=== PATIENT | male | born 1980 | race Caucasian/White ===

== ENCOUNTER 2020-06-16 12:25 | Emergency (ER) | payer OTHER, SELFPAY ==
[2020-06-16] VITALS (10 sets, daily range): BP systolic 104–163; BP diastolic 62–109; PULSE 83–101; RESP 14–26; TEMP 36.8; O2SAT 94–100; BMI 24.0
--- NOTE | 2020-06-16 12:39 | ECG_ITS ---
Test Reason : PSYCHOTIC EPISODE Blood Pressure : / mmHG Vent. Rate : 101 BPM Atrial Rate : 101 BPM P-R Int : 142 ms QRS Dur : 092 ms QT Int : 366 ms P-R-T Axes : 074 070 056 degrees QTc Int : 474 ms Sinus tachycardia Otherwise normal ECG No previous ECGs available Referred By: Magdalena Cortez Electronically Signed By:LULU MCKNIGHT MD
--- NOTE | 2020-06-16 12:39 | CT_ITS ---
EXAMINATION: CT HEAD WITHOUT CONTRAST CLINICAL INFORMATION: Dilution no COMPARISON: None TECHNIQUE: Contiguous axial imaging was performed from the skull base to vertex without intravenous administration of contrast. This CT examination was performed using dose optimization techniques as appropriate, variously including the following: *Automated exposure control *Adjustment of mA and/or kV according to patient size (this includes techniques or standardized protocols for targeted exams where dose is matched to indication/reason for exam; i.e. extremities or head) *Use of iterative reconstruction technique DLP: 764 mGy-cm FINDINGS: There is no evidence of acute intracranial hemorrhage or territorial infarction. No abnormal mass effect or midline shift is seen. Malcolm to white matter differentiation is well preserved. No extra-axial fluid collections are identified. The ventricles are normal in size. There is no abnormal attenuation within the brain parenchyma. The osseous structures are normal. The mastoid air cells and visualized portions of the paranasal sinuses are well aerated. There is a 1.2 x 0.6 cm partially calcified scalp lesion at the vertex consistent with a trichilemmal/epidermal cyst. CT/CT head/brain wo con IMPRESSION: No acute intracranial pathology. Probable trichilemmal/epidermal cyst
--- NOTE | 2020-06-16 12:39 | XR_ITS ---
EXAMINATION: XR CHEST CLINICAL INFORMATION: AMS COMPARISON: None TECHNIQUE: AP portable view of the chest was obtained. FINDINGS: No significant abnormality is noted involving the heart, lungs, mediastinum, bony thorax or soft tissues. XR/XR chest 1V IMPRESSION: No acute disease.
--- NOTE | 2020-06-16 12:49 | ED_ITS ---
HPI - Psych General Chief Complaint: Altered Mental Status Stated Complaint: ?covid symptoms Time Seen by Provider: 06/16/20 12:38 Source: patient and family Mode of arrival: ambulatory Limitations: other (uncooperative) History of Present Illness complaint: other (delusions, paranoia) Onset (ago): day(s) (7) Duration: constant History of same: No Relieving factors: none Exacerbating factors: none Context: other (not sleeping x 1 week, takes adderrall) Associated psychiatric symptoms: racing thoughts and delusions Associated symptoms: denies other symptoms Treatments prior to arrival: none Related Data Home Medications Medication Instructions Recorded Confirmed Adderall 06/16/20 Allergies Allergy/AdvReac Type Severity Reaction Status Date / Time No Known Allergies Allergy Verified 06/16/20 12:38 Review of Systems Review of Systems: ROS unable to be obtained due to being uncooperative [facility] Past Medical History Attestation statement: The following information was validated with the patient. Medical History No known health problems Social History Social History (Updated 06/16/20 @ 13:48 by Magdalena Cortez DO) Alcohol intake: unknown Smoking Status: Never smoker Substance Use Type: Marijuana Advance Directives: No Advance Directives Information Provided: No Physical Exam Vital Signs: Vital Signs: Last Vital Signs Temp 98.3 F 06/16/20 15:17 Pulse 94 06/16/20 15:17 Resp 16 06/16/20 15:17 BP 144/91 H 06/16/20 15:17 Pulse Ox 99 06/16/20 15:17 Body Mass Index 24.0 Appearance: Alert. Oriented X3. Agitated limited history uncooperative at times Eyes: Pupils equal, round and reactive to light. dilated to 5mm ENT: Pharynx normal. Neck: Normal inspection. Neck supple. CVS: Normal heart rate and rhythm. Pulses normal. Respiratory: No respiratory distress. Breath sounds normal. Abdomen: Soft and non-tender. Skin: Skin warm and dry. Normal skin color. Normal skin turgor. Extremities: No lower extremity edema. No calf ttp Neuro: Oriented X 3. No motor deficit. No sensory deficit. Course Course Course Narrative: patient initially came in to ED with coaxing, I placed him on section 12 he is paranoid and delusional - agitated, repeated requests to bring his daughter with him to keep her in my line of sight but couldn't say why, the child was tearful and crying, at this time after arrival in bed he became very agitated and threatening - IM haldol and ativan ordered suspect initial error in lactic acid will repeat repeat lactic acid 3.2 likely due to agittion has no fever and no WBC count at this time I do not suspect infection or severe sepsis 225pm recheck after medications, patient is asleep and resting comfortably post IM medications IVF ordered, signed out pending full workup MDM - Psych MDM Narrative Medical decision making narrative: 39 yo male agitated and paranoid not sleeping for 1 week on adderrall - here very aggressive at this time will need labs, CXR, CT head to r/o medical issues but at this time the patient seems that the patient has a psychosis due to lack of sleep and possible adderrall use - dispo per results and findings. Lab Data Result diagrams: 06/16/20 13:16 06/16/20 13:16 Labs: Lab Results 06/16/20 06/16/20 06/16/20 Range/Units 13:16 13:16 13:16 WBC 6.7 (4.8-10.8) X10*3/uL RBC 4.57 L (4.60-5.80) X10*6/uL Hgb 13.5 L (14.0-18.0) g/dl Hct 40.6 L (42-52) % MCV 88.8 (80-98) fL MCH 29.5 (27.0-33.0) pg MCHC 33.3 (31.0-36.0) g/dl RDW 12.1 (11.0-16.0) % Plt Count 310 (160-400) X10*3/uL MPV 9.9 (9.4-12.4) fL Immature Gran % (Auto) 0.1 (0.0-0.4) % Neut % (Auto) 70.8 (45-73) % Lymph % (Auto) 21.0 (20-40) % [place] % (Auto) 7.9 (2-11) % Eos % (Auto) 0.1 (0-4) % Baso % (Auto) 0.1 (0-2) % Lymph # (Auto) 1.4 (1.2-4.9) X10*3/uL [place] # (Auto) 0.5 (0.1-1.2) X10*3/uL Eos # (Auto) 0.0 (0.0-0.4) X10*3/uL Baso # (Auto) 0.0 (0.0-0.2) X10*3/uL Abs Immat Gran (auto) 0.01 (0.00-0.03) X10*3/uL Absolute Neuts (auto) 4.7 (2.0-8.3) X10*3/uL Absolute Nucleated RBC 0.000 (0.0-0.012) X10*3/uL Nucleated RBC % (auto) 0.0 (0.0-0.2) /100WBC PT (10.8-13.0) SEC INR (0.9-1.1) APTT (24.1-38.0) SEC VBG pH (7.32-7.43) VBG pCO2 mmhg VBG pO2 mmhg VBG HCO3 mmol/L VBG O2 Saturation % VBG Base Excess mmol/L Sodium 137 (135-145) mmol/L Potassium 3.6 (3.3-5.1) mmol/l Chloride 100 (96-108) mmol/L Carbon Dioxide 18 L (22-29) mmol/L Anion Gap 23 H (12-20) BUN 13 (9-16) mg/dL Creatinine 1.03 (0.5-1.4) mg/dL Estim Creat Clear Calc 117.3 Estimated GFR > 60 Random Glucose 131 H (60-115) mg/dL Lactic Acid (0.5-2.0) mmol/L Calcium 9.7 9.9 (8.4-10.2) mg/dL Magnesium 2.2 (1.6-2.6) mg/dL Ferritin 160 (20-250) ng/mL Total Bilirubin 0.8 (0.0-1.0) mg/dL Direct Bilirubin 0.3 (0.0-0.5) mg/dL AST 18 (5-37) U/L ALT 23 (0-40) U/L Alkaline Phosphatase 84 (39-117) U/L Ammonia (13-55) umol/L Lactate Dehydrogenase 200 (118-273) U/L Total Creatine Kinase 306 H (38-174) U/L Total Protein 7.9 (6.5-8.0) g/dL Albumin 5.1 H (3.5-5.0) g/dL Urine Color Urine Appearance Urine pH (5.0-8.0) Ur Specific [place] (1.005-1.025) Urine Protein (NEG-TRACE) MG/DL Urine Glucose (UA) (NEG) MG/DL Urine Ketones (NEG) MG/DL Urine Blood (NEG) Urine Nitrite (NEG) Ur Leukocyte Esterase (NEG) Urine Opiates Screen (Not Detect) Ur Barbiturates Screen (Not Detect) Ur Phencyclidine Scrn (Not Detect) Ur Amphetamines Screen (Not Detect) U Benzodiazepines Scrn (Not Detect) Urine Cocaine Screen (Not Detect) U Marijuana (THC) Screen (Not Detect) Ethyl Alcohol mg/dL 06/16/20 06/16/20 06/16/20 Range/Units 13:16 13:17 13:17 WBC (4.8-10.8) X10*3/uL RBC (4.60-5.80) X10*6/uL Hgb (14.0-18.0) g/dl Hct (42-52) % MCV (80-98) fL MCH (27.0-33.0) pg MCHC (31.0-36.0) g/dl RDW (11.0-16.0) % Plt Count (160-400) X10*3/uL MPV (9.4-12.4) fL Immature Gran % (Auto) (0.0-0.4) % Neut % (Auto) (45-73) % Lymph % (Auto) (20-40) % [place] % (Auto) (2-11) % Eos % (Auto) (0-4) % Baso % (Auto) (0-2) % Lymph # (Auto) (1.2-4.9) X10*3/uL [place] # (Auto) (0.1-1.2) X10*3/uL Eos # (Auto) (0.0-0.4) X10*3/uL Baso # (Auto) (0.0-0.2) X10*3/uL Abs Immat Gran (auto) (0.00-0.03) X10*3/uL Absolute Neuts (auto) (2.0-8.3) X10*3/uL Absolute Nucleated RBC (0.0-0.012) X10*3/uL Nucleated RBC % (auto) (0.0-0.2) /100WBC PT 12.4 (10.8-13.0) SEC INR 1.0 (0.9-1.1) APTT 29.2 (24.1-38.0) SEC VBG pH (7.32-7.43) VBG pCO2 mmhg VBG pO2 mmhg VBG HCO3 mmol/L VBG O2 Saturation % VBG Base Excess mmol/L Sodium (135-145) mmol/L Potassium (3.3-5.1) mmol/l Chloride (96-108) mmol/L Carbon Dioxide (22-29) mmol/L Anion Gap (12-20) BUN (9-16) mg/dL Creatinine (0.5-1.4) mg/dL Estim Creat Clear Calc Estimated GFR Random Glucose (60-115) mg/dL Lactic Acid 9.7 H* (0.5-2.0) mmol/L Calcium (8.4-10.2) mg/dL Magnesium (1.6-2.6) mg/dL Ferritin (20-250) ng/mL Total Bilirubin (0.0-1.0) mg/dL Direct Bilirubin (0.0-0.5) mg/dL AST (5-37) U/L ALT (0-40) U/L Alkaline Phosphatase (39-117) U/L Ammonia 37 (13-55) umol/L Lactate Dehydrogenase (118-273) U/L Total Creatine Kinase (38-174) U/L Total Protein (6.5-8.0) g/dL Albumin (3.5-5.0) g/dL Urine Color Urine Appearance Urine pH (5.0-8.0) Ur Specific [place] (1.005-1.025) Urine Protein (NEG-TRACE) MG/DL Urine Glucose (UA) (NEG) MG/DL Urine Ketones (NEG) MG/DL Urine Blood (NEG) Urine Nitrite (NEG) Ur Leukocyte Esterase (NEG) Urine Opiates Screen (Not Detect) Ur Barbiturates Screen (Not Detect) Ur Phencyclidine Scrn (Not Detect) Ur Amphetamines Screen (Not Detect) U Benzodiazepines Scrn (Not Detect) Urine Cocaine Screen (Not Detect) U Marijuana (THC) Screen (Not Detect) Ethyl Alcohol mg/dL 06/16/20 06/16/20 06/16/20 Range/Units 13:17 13:22 13:50 WBC (4.8-10.8) X10*3/uL RBC (4.60-5.80) X10*6/uL Hgb (14.0-18.0) g/dl Hct (42-52) % MCV (80-98) fL MCH (27.0-33.0) pg MCHC (31.0-36.0) g/dl RDW (11.0-16.0) % Plt Count (160-400) X10*3/uL MPV (9.4-12.4) fL Immature Gran % (Auto) (0.0-0.4) % Neut % (Auto) (45-73) % Lymph % (Auto) (20-40) % [place] % (Auto) (2-11) % Eos % (Auto) (0-4) % Baso % (Auto) (0-2) % Lymph # (Auto) (1.2-4.9) X10*3/uL [place] # (Auto) (0.1-1.2) X10*3/uL Eos # (Auto) (0.0-0.4) X10*3/uL Baso # (Auto) (0.0-0.2) X10*3/uL Abs Immat Gran (auto) (0.00-0.03) X10*3/uL Absolute Neuts (auto) (2.0-8.3) X10*3/uL Absolute Nucleated RBC (0.0-0.012) X10*3/uL Nucleated RBC % (auto) (0.0-0.2) /100WBC PT (10.8-13.0) SEC INR (0.9-1.1) APTT (24.1-38.0) SEC VBG pH (7.32-7.43) VBG pCO2 mmhg VBG pO2 mmhg VBG HCO3 mmol/L VBG O2 Saturation % VBG Base Excess mmol/L Sodium (135-145) mmol/L Potassium (3.3-5.1) mmol/l Chloride (96-108) mmol/L Carbon Dioxide (22-29) mmol/L Anion Gap (12-20) BUN (9-16) mg/dL Creatinine (0.5-1.4) mg/dL Estim Creat Clear Calc Estimated GFR Random Glucose (60-115) mg/dL Lactic Acid (0.5-2.0) mmol/L Calcium (8.4-10.2) mg/dL Magnesium (1.6-2.6) mg/dL Ferritin (20-250) ng/mL Total Bilirubin (0.0-1.0) mg/dL Direct Bilirubin (0.0-0.5) mg/dL AST (5-37) U/L ALT (0-40) U/L Alkaline Phosphatase (39-117) U/L Ammonia (13-55) umol/L Lactate Dehydrogenase (118-273) U/L Total Creatine Kinase (38-174) U/L Total Protein (6.5-8.0) g/dL Albumin (3.5-5.0) g/dL Urine Color YELLOW Urine Appearance CLEAR Urine pH 6.0 (5.0-8.0) Ur Specific [place] 1.010 (1.005-1.025) Urine Protein NEG (NEG-TRACE) MG/DL Urine Glucose (UA) NEG (NEG) MG/DL Urine Ketones NEG (NEG) MG/DL Urine Blood NEG (NEG) Urine Nitrite NEG (NEG) Ur Leukocyte Esterase NEG (NEG) Urine Opiates Screen Not Detected (Not Detect) Ur Barbiturates Screen Not Detected (Not Detect) Ur Phencyclidine Scrn Not Detected (Not Detect) Ur Amphetamines Screen POSITIVE H (Not Detect) U Benzodiazepines Scrn Not Detected (Not Detect) Urine Cocaine Screen Not Detected (Not Detect) U Marijuana (THC) Screen Not Detected (Not Detect) Ethyl Alcohol < 10 mg/dL 06/16/20 06/16/20 Range/Units 13:50 14:11 WBC (4.8-10.8) X10*3/uL RBC (4.60-5.80) X10*6/uL Hgb (14.0-18.0) g/dl Hct (42-52) % MCV (80-98) fL MCH (27.0-33.0) pg MCHC (31.0-36.0) g/dl RDW (11.0-16.0) % Plt Count (160-400) X10*3/uL MPV (9.4-12.4) fL Immature Gran % (Auto) (0.0-0.4) % Neut % (Auto) (45-73) % Lymph % (Auto) (20-40) % [place] % (Auto) (2-11) % Eos % (Auto) (0-4) % Baso % (Auto) (0-2) % Lymph # (Auto) (1.2-4.9) X10*3/uL [place] # (Auto) (0.1-1.2) X10*3/uL Eos # (Auto) (0.0-0.4) X10*3/uL Baso # (Auto) (0.0-0.2) X10*3/uL Abs Immat Gran (auto) (0.00-0.03) X10*3/uL Absolute Neuts (auto) (2.0-8.3) X10*3/uL Absolute Nucleated RBC (0.0-0.012) X10*3/uL Nucleated RBC % (auto) (0.0-0.2) /100WBC PT (10.8-13.0) SEC INR (0.9-1.1) APTT (24.1-38.0) SEC VBG pH 7.34 (7.32-7.43) VBG pCO2 40 mmhg VBG pO2 84 mmhg VBG HCO3 21 mmol/L VBG O2 Saturation 95.5 % VBG Base Excess -4.5 mmol/L Sodium (135-145) mmol/L Potassium (3.3-5.1) mmol/l Chloride (96-108) mmol/L Carbon Dioxide (22-29) mmol/L Anion Gap (12-20) BUN (9-16) mg/dL Creatinine (0.5-1.4) mg/dL Estim Creat Clear Calc Estimated GFR Random Glucose (60-115) mg/dL Lactic Acid 3.2 H* (0.5-2.0) mmol/L Calcium (8.4-10.2) mg/dL Magnesium (1.6-2.6) mg/dL Ferritin (20-250) ng/mL Total Bilirubin (0.0-1.0) mg/dL Direct Bilirubin (0.0-0.5) mg/dL AST (5-37) U/L ALT (0-40) U/L Alkaline Phosphatase (39-117) U/L Ammonia (13-55) umol/L Lactate Dehydrogenase (118-273) U/L Total Creatine Kinase (38-174) U/L Total Protein (6.5-8.0) g/dL Albumin (3.5-5.0) g/dL Urine Color Urine Appearance Urine pH (5.0-8.0) Ur Specific [place] (1.005-1.025) Urine Protein (NEG-TRACE) MG/DL Urine Glucose (UA) (NEG) MG/DL Urine Ketones (NEG) MG/DL Urine Blood (NEG) Urine Nitrite (NEG) Ur Leukocyte Esterase (NEG) Urine Opiates Screen (Not Detect) Ur Barbiturates Screen (Not Detect) Ur Phencyclidine Scrn (Not Detect) Ur Amphetamines Screen (Not Detect) U Benzodiazepines Scrn (Not Detect) Urine Cocaine Screen (Not Detect) U Marijuana (THC) Screen (Not Detect) Ethyl Alcohol mg/dL ECG Data Attestation: I personally reviewed and interpreted this ECG as follows: ECG interpretation date: 06/16/20 ECG interpretation time: 13:50 Interpretation: Rate: 101 Rhythm: sinus tachycardia [place]: normal Normal P waves. Normal OTILIA. Normal QRS complex. ST T wave : normal qTC: normal prior studies: no acute ischemia The study has been interpreted contemporaneously by me. . Discharge Plan Discharge Clinical Impression: Acidosis, lactic, Paranoia Prescriptions: No Action Adderall RF: 0
[2020-06-16] MEDS: LORazepam 2 MG/ML VIAL IM (12:59)
[2020-06-16] MEDS: Haloperidol Lactate 5 MG/ML VIAL 10 MG IM (12:59)
[2020-06-16 13:31] LABS: Glucose Urine UA NEG (NEG); Leukocyte Esterase Urine NEG (NEG); Nitrite Urine NEG (NEG); Urine Blood NEG (NEG); Urine Ketones NEG (NEG); Urine Protein NEG (NEG-TRACE)
[2020-06-16 13:34] LABS: MANUAL DIFF FLAG NO
[2020-06-16 13:34] LABS: Appearance Urine CLEAR; Color Urine YELLOW
[2020-06-16 13:36] LABS: Basophils Percent Auto 0.1 % (0-2); Eosinophils Percent Auto 0.1 % (0-4); Hematocrit 40.6 % (42-52); Hemoglobin 13.5 g/dl (14.0-18.0); Imm Gran Abs Auto 0.01 X10*3/uL (0.00-0.03); Imm Gran Pct Auto 0.1 % (0.0-0.4); Lymphocytes Absolute Auto 1.4 X10*3/uL (1.2-4.9); Mean Corpuscular HGB Conc 33.3 g/dl (31.0-36.0); Mean Corpuscular Hemoglobin 29.5 pg (27.0-33.0); Mean Corpuscular Volume 88.8 fL (80-98); Mean Platelet Volume 9.9 fL (9.4-12.4); Monocytes Absolute Auto 0.5 X10*3/uL (0.1-1.2); Monocytes Percent Auto 7.9 % (2-11); Neutrophils Absolute Auto 4.7 X10*3/uL (2.0-8.3); Neutrophils Percent Auto 70.8 % (45-73); Platelet Count 310 X10*3/uL (160-400); Red Blood Count 4.57 X10*6/uL (4.60-5.80); Red Cell Distribution Width 12.1 % (11.0-16.0); White Blood Count 6.7 X10*3/uL (4.8-10.8)
[2020-06-16 13:44] LABS: Prothrombin Time 12.4 SEC (10.8-13.0)
[2020-06-16 13:47] LABS: Partial Thromboplastin Time 29.2 SEC (24.1-38.0)
[2020-06-16 13:50] LABS: Ammonia 37 umol/L (13-55)
[2020-06-16 13:53] LABS: Ethanol < 10 mg/dL
[2020-06-16 13:58] LABS: Alanine Aminotransferase 23 U/L (0-40); Albumin Level 5.1 g/dL (3.5-5.0); Alkaline Phosphatase 84 U/L (39-117); Aspartate Amino Transferase 18 U/L (5-37); Bilirubin Direct 0.3 mg/dL (0.0-0.5); Bilirubin Total 0.8 mg/dL (0.0-1.0); Calcium 9.9 mg/dL (8.4-10.2); Lactate Dehydrogenase 200 U/L (118-273); Magnesium 2.2 mg/dL (1.6-2.6); Total Protein 7.9 g/dL (6.5-8.0)
[2020-06-16 14:00] LABS: Anion Gap 23 (12-20); Blood Urea Nitrogen 13 mg/dL (9-16); Calcium 9.7 mg/dL (8.4-10.2); Carbon Dioxide 18 mmol/L (22-29); Chloride 100 mmol/L (96-108); Creatinine Clr Calc Pharmacy 117.3; Estimated Glomerular Filt Rate > 60; Glucose Random 131 mg/dL (60-115); Potassium 3.6 mmol/l (3.3-5.1); Sodium 137 mmol/L (135-145)
[2020-06-16 14:01] LABS: Lactic Acid 9.7 mmol/L (0.5-2.0)
[2020-06-16 14:08] LABS: Base Excess VBG -4.5 mmol/L; Blood Gas Serial # 5396; HCO3 VBG 21 mmol/L; Oxygen Saturation VBG 95.5 %; PCO2 VBG 40 mmhg; PO2 VBG 84 mmhg; pH VBG 7.34 (7.32-7.43)
[2020-06-16 14:18] LABS: Ferritin 160 ng/mL (20-250)
[2020-06-16 14:19] LABS: Amphetamine Screen Urine POSITIVE (Not Detect); Barbiturates, Urine Not Detected (Not Detect); Benzodiazepines Screen Urine Not Detected (Not Detect); Cannabinoid Screen Urine Not Detected (Not Detect); Cocaine Screen Urine Not Detected (Not Detect); Opiate Screen Urine Not Detected (Not Detect); Phencyclidine Screen Urine Not Detected (Not Detect)
[2020-06-16 14:56] LABS: Lactic Acid 3.2 mmol/L (0.5-2.0)
[2020-06-16] MEDS: 0.9 % Sodium Chloride 1,000 ML 999 ML IVCONT (15:27)
[2020-06-16 15:30] LABS: Reflex Lactate? Lactic Acid Added
[2020-06-16 16:20] LABS: Reflex Lactate? Lactic Acid Added
--- NOTE | 2020-06-16 16:27 | MHC.CARE ---
Pt's and father updated on his status. He continues to sleep, demonstrating no delirious behavior.
[2020-06-16 16:49] LABS: Influenza A PCR NEGATIVE (Negative); Influenza B PCR NEGATIVE (Negative); Resp Syncy Virus RNA Qual PCR NEGATIVE (Negative); SARS COV2 PCR INHOUSE NEGATIVE (Negative)
--- NOTE | 2020-06-16 17:47 | PC.NURSE ---
Pt's called to report that approx. one month ago pt acquired what they felt was a small round bullseye-type reddened area on his back after working outdoors. He subsequently began developing increased tiredness and joint pain and was supecting lyme, but hasn't followed up with it. She asked that we rule this out. Archie, BEEF CATTLE SPECIALIST made aware.
--- NOTE | 2020-06-16 18:42 | PC.NURSE ---
Report received. PT ambulated to pod with steady gait, pt denies complaints. PT be to seen by crisis.
--- NOTE | 2020-06-16 19:15 | PC.NURSE ---
Report received. PT sitting in his room talking calmly with CARE team.
[2020-06-18 13:22] LABS: Lyme Abs Screen <0.90 index
== END 2020-06-16 20:28 | disposition home or self-care (01) ==
PROVIDERS: Internal Medicine; Emergency Provider Emergency Medicine
DX: E87.2 Acidosis (principal); F22 Delusional disorders; Z20.828 Contact with and (suspected) exposure to other viral communicable diseases; Z79.899 Other long term (current) drug therapy
CPT/HCPCS: 0241U; 36415; 70450; 71045; 80048; 80076; 80307; 80320; 81003; 82140; 82310; 82550; 82728; 82803; 83605; 83615; 83735; 85025; 85610; 85730; 86618; 87040; 93005; 96365; 96372; 99284; 99285; J2060

== ENCOUNTER 2020-06-17 20:20 | Emergency (ER) | payer OTHER, SELFPAY ==
--- NOTE | 2020-06-17 20:21 | PC.NURSE ---
[facility] in [facility] [phone], to be called with updates.
[2020-06-17 20:22] VITALS: BP 121/77; PULSE 102; RESP 20; TEMP 35.8; O2SAT 97; BMI 25.7
[2020-06-17] MEDS: diphenhydrAMINE HCL 50 MG/ML VIAL IM (21:35)
--- NOTE | 2020-06-17 21:48 | ED.GENADULT ---
HPI - General Adult General Chief complaint: General Medical Stated complaint: med reaction Time Seen by Provider: 06/17/20 21:08 Source: patient Mode of arrival: ambulatory Limitations: no limitations History of Present Illness HPI narrative: patient history of anxiety ADHD on Adderall yesterday was given Haldol IM for agitation today patient noticed spasm of the jaw on the neck muscles Onset (ago): day(s) ( today) Related Data Home Medications Medication Instructions Recorded Confirmed Adderall 06/16/20 Previous Rx's Medication Instructions Recorded hydroxyzine HCl 25 mg PO BEDTIME PRN #20 tab 06/16/20 Allergies Allergy/AdvReac Type Severity Reaction Status Date / Time No Known Allergies Allergy Verified 06/16/20 12:38 Review of Systems Review of Systems: REVIEW OF SYSTEMS: Pertinent positives and negatives are stated above in the history. GEN: no fevers, chills, fatigue HEENT: no nasal congestion, sore throat, ear pain NEURO: no headache, dizziness, focal weakness PULM: no cough, shortness of breath CV: no chest pain, palpitations, LE edema ABD: no abdominal pain, nausea, vomiting, diarrhea : no dysuria, urgency, frequency SKIN: no rash ROS otherwise negative x 10 PMFSH Past Medical History Medical History No known health problems Social History Social History Alcohol intake: unknown Smoking Status: Never smoker Substance Use Type: Marijuana Advance Directives: No Advance Directives Information Provided: Yes Physical Exam Vital Signs: Vital Signs: Last Vital Signs Temp 96.5 F L 06/17/20 20:22 Pulse 102 H 06/17/20 20:22 Resp 20 06/17/20 20:22 BP 121/77 06/17/20 20:22 Pulse Ox 97 06/17/20 20:22 Body Mass Index 25.7 Appearance: Alert. Oriented X3. patient very anxious Eyes: Pupils equal, round and reactive to light. ENT: unable to open his mouth because of spasm of the masseter muscle Neck: Normal inspection. Neck supple. CVS: Normal heart rate and rhythm. Pulses normal. Respiratory: No respiratory distress. Breath sounds normal. Abdomen: Soft and nontender. Skin: Skin warm and dry. Normal skin color. Normal skin turgor. Extremities: No lower extremity edema. Good range of movement Neuro: Oriented X 3. No motor deficit. No sensory deficit. Medical Decision Making MDM Narrative Medical decision making narrative: patient feeling better no spasm is gone after Benadryl will discharge him home for dystonic reaction secondary to Haldol which was given yesterday Discharge Plan Discharge Clinical Impression: Dystonia Patient Disposition: Home, Self-Care Instructions: Extrapyramidal Symptoms (ED) Additional Instructions: your symptoms likely from medication was given yesterday. Take Benadryl 25 mg 1-2 tablets every 6 hours as needed for the spasms. Report to the ER/ PCP if the symptoms continues Prescriptions: No Action Adderall RF: 0 hydroxyzine HCl 25 mg tablet 25 mg PO BEDTIME PRN (Reason: sleep) Qty: 20 RF: 0
== END 2020-06-17 23:10 | disposition home or self-care (01) ==
PROVIDERS: Emergency Provider Internal Medicine; PCP Family Medicine
DX: G24.9 Dystonia, unspecified (principal); F90.9 Attention-deficit hyperactivity disorder, unspecified type; F12.90 Cannabis use, unspecified, uncomplicated; Z79.899 Other long term (current) drug therapy
CPT/HCPCS: 96372; 99283; 99284; J1200